=== PATIENT | male | born 1965 | race Caucasian/White ===

== ENCOUNTER 2017-01-11 07:28 | Emergency (ER) | payer OTHER ==
[~2017-01-11] VITALS: Ht 182.9 cm; Wt 100.0 kg
[~2017-01-11 07:28] MED LIST: ADVIL JUNIOR100 MG PO; AMITRIPTYLINE H50 M1 PO; ASPIRIN 81M81 MG/TA2 PO; CARDENE 30MG CA30 M1 PO; INDERAL 20MG20 MG PO; LORTAB 5/500 501 TAB PO; NO HOME MEDICATIONS; PERCOCET 5/321 UDTAB PO; PRIL40 PO; PRINZIDE 12.5 M1 TA1 PO; ULTRAM 50MG TAB50 MG PO; VALTREX PO
[2017-01-11 07:30] VITALS: TEMP 98.7
[2017-01-11] MEDS ORDERED: PRILOSEC10 MG PO (07:44)
[2017-01-11 07:51] LABS: BASO # 0.1 (0.0-0.2); BASO % 0.7 % (0.0-2.0); EOS # 0.3 (0.0-0.7); EOS % 3.9 % (0-4.0); GRAN # 4.7 (1.4-6.5); GRAN % 67.9 % (42.2-75.2); HEMATOCRIT 45.7 % (42.0-52.0); HEMOGLOBIN 15.8 g/dl (13.5-18.0); LYMPH # 1.3 (1.2-3.4); LYMPH % 19.4 % (20.0-51.0); MEAN CELL VOLUME 87 fl (80.0-100.0); MEAN CORPUSCULAR HEMOGLOBIN 30 pg (27.0-31.0); MEAN CORPUSCULAR HGB CONC 35 g/dl (33.0-37.0); MEAN PLATELET VOLUME 10.8 fl (7.4-10.4); MONO # 0.5 (0.1-0.6); MONO % 7.2 % (1.7-9.3); PLATELET COUNT 160 K/mm3 (130-400); RED BLOOD COUNT 5.23 M/mm3 (4.20-5.60); REDCELL DISTRIBUTION WIDTH-CV 12.8 % (11.5-14.5); WHITE BLOOD COUNT 6.9 K/mm3 (4.8-10.8)
[2017-01-11] MEDS ORDERED: ANXIETY MED PO (07:51)
[2017-01-11 07:57] LABS: INR 0.9 (0.8-3.0); PROTHROMBIN TIME 10.2 SECONDS (9.7-12.8)
[2017-01-11 08:02] LABS: ADJUSTED CALCIUM 8.8 mg/dL (8.4-10.2); ALANINE AMINOTRANSFERASE 25 U/L (21-72); ALBUMIN 4.3 gm/dL (3.5-5.0); ALKALINE PHOSPHATASE 69 U/L (50-136); ANION GAP 14 mmol/L (7-16); BILIRUBIN,TOTAL 0.8 mg/dL (0.0-1.0); BLOOD UREA NITROGEN 14 mg/dL (9-20); CARBON DIOXIDE 25 mmol/L (22-30); CHLORIDE 103 mmol/L (98-107); CREATININE, serum 0.86 mg/dL (0.66-1.25); GLUCOSE 101 mg/dL (74-106); PARTIAL THROMBOPLASTIN TIME 32.6 SECONDS (26.0-37.0); POTASSIUM 4.1 mmol/L (3.4-5.0); SODIUM 143 mmol/L (137-145)
[2017-01-11 08:15] LABS: TROPONIN-I < 0.012 ng/mL (0.000-0.034)
[2017-01-11] MEDS ORDERED: LEXAPRO 10MG10 MG PO (08:19)
[2017-01-11] MEDS ORDERED: ATARAX 25MG25 MG/TAB PO (08:19)
[2017-01-11] MEDS ORDERED: INDERAL 10MG10 MG PO (09:39)
[2017-01-11 10:17] VITALS: BP 118/85; PULSE 67
== END 2017-01-11 10:17 | disposition home or self-care (01) ==
LOC: COL.ER 07:28
PROVIDERS: Family Medicine
DX: R07.9 Chest pain, unspecified (principal); F41.9 Anxiety disorder, unspecified
CPT/HCPCS: J2060